=== PATIENT | male | born 1995 ===

== ENCOUNTER 2017-10-26 16:57 | Emergency (ER) | payer OTHER ==
[2017-10-26] MEDS ORDERED: Bacitracin Zinc 1 Packet ONE (18:07)
[2017-10-26] MEDS ORDERED: Adacel (T-DAP) 0.5 ML VIAL ONE (18:07)
[2017-10-26 18:32] LABS: HBSAB Concentration 0.22 mIU/mL; HIV (1/2) Antibody/Antigen Non-Reactive (NonReactive); HIV 1/2 INDEX 0.11 S/CO (<1.00); Hep B Surf AB Non-Reactive (NonReactive); Hep C IgG Ab Non-Reactive (NonReactive); Hep C Index 0.13 S/CO (0-0.79)
== END 2017-10-26 18:30 | disposition home or self-care (01) ==
LOC: ERS 16:57
DX: S60.410A Abrasion of right index finger, initial encounter (principal); S60.311A Abrasion of right thumb, initial encounter; Z77.21 Contact with and (suspected) exposure to potentially hazardous body fluids; X58.XXXA Exposure to other specified factors, initial encounter
CPT/HCPCS: 36415; 86706; 86803; 87389; 90471; 90715